=== PATIENT | female | born 1990 | race Caucasian/White ===

== ENCOUNTER → 2022-07-20 | Outpatient (CLI) | payer SELFPAY ==
--- NOTE | 2022-07-20 | CER_PTH ---
PATIENT: SAM LOAIZA [facility][id number] AGE/SX: 31/F ROOM: RE07/20/[address]: Dr. Angelo Kaba MD : 1990 BED: DIS: 07/20/2022 SPEC #: [id number] RECD: 07/20/22 17:59 STATUS: DOTTIE RECIO #: [id number] BRIDGETT: 07/20/22 00:[address]: Angelo Kaba DEPT: SURGICAL PATHOLOGY RECD BY: Addy Pena Tissues: A - Uterine cervix, NOS B - Uterine cervix, NOS Procedures: Surgery Specimen Level IV HEADER OPERATION: Colposcopy PRE-OP DIAGNOSIS: LGSIL TISSUE SUBMITTED: A ? Endocervical curettings, B ? 11 o?clock MICROSCOPIC DIAGNOSIS A. Endocervix, curettings: Scant strips of benign glandular and squamous mucosa. No evidence of dysplasia. B. 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 Mild chronic inflammation. See comment. AM:lydia 07/24/2022 COMMENT B. Results from immunohistochemistry ([id number]) for surrogate HPV marker (p16) will be reported separately. Case has been reviewed in consultation with Dr. Borges who concurs with the above diagnosis. IDC:SOLA MICROSCOPIC DESCRIPTION Slides are reviewed. GROSS DESCRIPTION A - Received in fixative is one container labeled with the patient's name and designated endocervical curettings. The specimen consists of a scant amount of soft tissue. The specimen is totally submitted for cell block preparation. B - Received in fixative is one container labeled with the patient's name and designated 11 o'clock. The specimen consists of one irregular fragment of light perez soft tissue that measures 0.7 x 0.2 x 0.1 cm. The specimen is totally submitted in one cassette. / SOLA:lydia 07/23/2022 TC:3 CPT: 32976 x2
--- NOTE | 2022-07-20 | IMM_PTH ---
PATIENT: SAM LOAIZA LOC: [facility] U#:[id number] AGE/SX: 31/F ROOM: RE07/20/[address]: Dr. Angelo Kaba MD : 1990 BED: DIS: 07/20/2022 SPEC #: [id number] RECD: 07/24/22 12:43 STATUS: DOTTIE REJonel #: [id number] BRIDGETT: 07/20/22 00:[address]: Angelo Kaba DEPT: IMMUNOHISTOCHEMISTRY RECD BY: Bren Ponce Tissues: B - Uterine cervix, NOS Procedures: p16 (initial) KI-67 (add) PHYSICIAN & INSTITUTION [place] [id number] SPECIMEN INFORMATION: Tissue Source: B ? Cervix at 11 o?clock Clinical Info: [facility] Specimen Number: [id number] CPT code: 82989, 47913 METHODOLOGY: Deparaffinized sections of prefer/formalin-fixed tissue or PAP/DQ stained slides are incubated with monoclonal/polyclonal antibodies/oligonucleotide probes. Localization is made via biotin free immunoperoxidase method. Appropriate controls are performed and reacted as expected. Results on target cell population are indicated in the following table: RESULTS: ANTIBODY / CLONE RESULT Block B P16 (E6H4) positive, patchy Ki-67 (30-9) positive, moderate These tests were developed and their performance characteristics determined by [facility]. They may not have been cleared or approved by the U.[place]. Food and Drug Administration. The FDA has determined that such clearance or approval is not necessary. The above immunohistochemical/dualISH markers are ordered and reviewed by the Pathologist. INTERPRETATION: B. Cervix at 11 o?clock, biopsy: Consistent with mild squamous dysplasia, MONY I (LSIL). AM:lydia 07/25/2022
== END | disposition home or self-care (01) ==
LOC: LABSPEC 16:01
PROVIDERS: Visit Provider Obstetrics & Gynecology
DX: N87.0 Mild cervical dysplasia (principal)
CPT/HCPCS: 88305; 88341; 88342

== ENCOUNTER → 2023-07-31 | Outpatient (CLI) | payer SELFPAY ==
[2023-08-08 12:09] LABS: HPV APTIMA, High Risk Negative (Negative)
== END | disposition home or self-care (01) ==
LOC: LABSPEC 13:27
PROVIDERS: Visit Provider Student in an Organized Health Care Education/Training Program
DX: Z12.4 Encounter for screening for malignant neoplasm of cervix (principal)
CPT/HCPCS: 87624; 88175; G0145